=== PATIENT | male | born 1970 | race Caucasian/White ===

== ENCOUNTER 2018-02-15 21:23 | Emergency (ER) | payer SELFPAY ==
[~2018-02-15] VITALS: Ht 165.1 cm; Wt 62.7 kg
[2018-02-15 21:24] VITALS: BP 164/111
[2018-02-15] MEDS ORDERED: PROPARACAINE OPHTH 0.5%, 15ML ONE (21:32)
[2018-02-15] MEDS ORDERED: FLUORESCEIN OPHTHALMIC 1 MG STRIP ONE (21:32)
== END 2018-02-15 23:13 | disposition home or self-care (01) ==
LOC: ED 22:45
DX: T15.01XA Foreign body in cornea, right eye, initial encounter (principal); H16.041 Marginal corneal ulcer, right eye; F17.200 Nicotine dependence, unspecified, uncomplicated; X58.XXXA Exposure to other specified factors, initial encounter; Y93.89 Activity, other specified; Y92.89 Other specified places as the place of occurrence of the external cause; Y99.8 Other external cause status
CPT/HCPCS: 65222; 99284

== ENCOUNTER 2018-04-14 19:24 | Emergency (ER) | payer OTHER ==
[~2018-04-14] VITALS: Ht 165.1 cm; Wt 67.0 kg
[2018-04-14] MEDS ORDERED: SODIUM CHLORIDE FLUSH 10ML SYR IVF ONE (20:00)
[2018-04-14] MEDS ORDERED: ACETAMINOPHEN 500 MG TABLET PO ONE (20:00)
[2018-04-14] MEDS ORDERED: LIDOCAINE-MPF 1%, 5ML INFIL ONE (20:00)
[2018-04-14] MEDS ORDERED: SODIUM CHLORIDE 0.9% 1,000ML IVBOLUS ONE (20:00)
[2018-04-14] MEDS ORDERED: LIDOCAINE-MPF 2% ,5ML ONE (20:01)
[2018-04-14] MEDS ORDERED: ACETAMINOPHEN 500 MG TABLET ONE (20:10)
[2018-04-14 20:16] LABS: BASOPHILS # (AUTO) 0.03 x10^3/uL (0-0.1); BASOPHILS % (AUTO) 0 % (0-1); EOSINOPHILS # (AUTO) 0.16 x10^3/uL (0-0.4); EOSINOPHILS % (AUTO) 1 % (1-7); LYMPHOCYTES # (AUTO) 2.52 x10^3/uL (1-3.4); LYMPHOCYTES % (AUTO) 17 % (22-44); MD NO; MEAN CORPUSCULAR HEMOGLOBIN 28.9 pg (27.5-34.5); MEAN CORPUSCULAR HGB CONC 33.4 g/dL (33.2-36.2); MEAN CORPUSCULAR VOLUME 86.4 fL (81-97); MEAN PLATELET VOLUME 8.1 fL (7.4-10.4); MONOCYTES % (AUTO) 7 % (2-9); NEUTROPHILS # (AUTO) 11.16 x10^3/uL (1.8-6.8); NEUTROPHILS % (AUTO) 75 % (42-75); PLATELET COUNT 249 x10^3/uL (130-400); RED BLOOD COUNT 5.05 x10^6/uL (4.38-5.82); RED CELL DISTRIBUTION WIDTH 14.7 % (9.4-14.8)
[2018-04-14 20:23] LABS: ALBUMIN 3.3 g/dL (3.4-5.0); ANION GAP 6 mmol/L (5-15); CALCIUM 8.5 mg/dL (8.5-10.1); CHLORIDE 110 mmol/L (98-107); CREATININE 0.93 mg/dL (0.7-1.3)
[2018-04-14] MEDS ORDERED: DIPH,PERTUSS(ACELL),TET VAC/PF 0.5 ML IM-VACC ONE ×2 (20:30→21:12)
[2018-04-14] MEDS ORDERED: CEFAZOLIN PMX 1GM/50ML 50 ML ONE (21:31)
[2018-04-14 21:55] VITALS: BP 122/78
[2018-04-14] MEDS ORDERED: CEFAZOLIN PMX 1GM/50ML 50 ML IV ONE (22:00)
== END 2018-04-14 22:09 | disposition home or self-care (01) ==
LOC: ED 22:03
DX: T63.391A Toxic effect of venom of other spider, accidental (unintentional), initial encounter (principal); L03.113 Cellulitis of right upper limb; Y92.89 Other specified places as the place of occurrence of the external cause
CPT/HCPCS: 36415; 80048; 82040; 83605; 85025; 90471; 90715; 96365; 99284; J0690; J7030

== ENCOUNTER 2018-04-16 18:39 | Inpatient (IN) | payer OTHER ==
[~2018-04-16] VITALS: Ht 167.6 cm; Wt 59.4 kg
[2018-04-16] MEDS ORDERED: LIDOCAINE-MPF 2% ,5ML ONE (18:55)
[2018-04-16] MEDS ORDERED: LIDOCAINE-MPF 2% ,5ML SQ ONE (19:00)
[2018-04-16 19:20] LABS: ALBUMIN 3.3 g/dL (3.4-5.0); ANION GAP 7 mmol/L (5-15); CALCIUM 8.9 mg/dL (8.5-10.1); CHLORIDE 107 mmol/L (98-107); CREATININE 1.03 mg/dL (0.7-1.3)
[2018-04-16 19:21] LABS: BASOPHILS # (AUTO) 0.09 x10^3/uL (0-0.1); BASOPHILS % (AUTO) 1 % (0-1); EOSINOPHILS # (AUTO) 0.39 x10^3/uL (0-0.4); EOSINOPHILS % (AUTO) 4 % (1-7); LYMPHOCYTES # (AUTO) 1.56 x10^3/uL (1-3.4); LYMPHOCYTES % (AUTO) 14 % (22-44); MEAN CORPUSCULAR HEMOGLOBIN 29.8 pg (27.5-34.5); MEAN CORPUSCULAR HGB CONC 34.1 g/dL (33.2-36.2); MEAN CORPUSCULAR VOLUME 87.3 fL (81-97); MEAN PLATELET VOLUME 8.3 fL (7.4-10.4); MONOCYTES # (AUTO) 1.03 x10^3/uL (0.2-0.8); MONOCYTES % (AUTO) 9 % (2-9); NEUTROPHILS # (AUTO) 8.37 x10^3/uL (1.8-6.8); NEUTROPHILS % (AUTO) 73 % (42-75); PLATELET COUNT 236 x10^3/uL (130-400); RED BLOOD COUNT 5.36 x10^6/uL (4.38-5.82); RED CELL DISTRIBUTION WIDTH 15.3 % (9.4-14.8)
[2018-04-16 19:22] LABS: MD NO
[2018-04-16] MEDS ORDERED: SODIUM CHLORIDE 0.9% 1,000ML IVBOLUS ONE (19:30)
[2018-04-16] MEDS ORDERED: SODIUM CHLORIDE FLUSH 10ML SYR IVF ONE (19:30)
[2018-04-16] MEDS ORDERED: CLINDAMYCIN PMX 900MG/50ML 50 ML IV ONE (19:30)
[2018-04-16] MEDS ORDERED: CLINDAMYCIN PMX 900MG/50ML 50 ML ONE (19:38)
[2018-04-16 20:00] LABS: INTERNATIONAL NORMALIZED RATIO 0.96 (0.93-1.1)
[2018-04-16] MEDS ORDERED: LORazepam 2 MG/ML, 1ML IVPush ONE (20:00)
[2018-04-16] MEDS ORDERED: NICOTINE 21 MG/24 HR PATCH.TD24 TD ONE (21:00)
[2018-04-16] MEDS ORDERED: KETOROLAC 30 MG/1 ML IVPush ONE (21:00)
[2018-04-16] MEDS ORDERED: KETOROLAC 30 MG/1 ML ONE (21:12)
[2018-04-16] MEDS ORDERED: NICOTINE 21 MG/24 HR PATCH.TD24 ONE (21:12)
[2018-04-16] MEDS ORDERED: ACETAMINOPHEN 500 MG TABLET PO PRN (22:30)
[2018-04-16] MEDS ORDERED: ONDANSETRON 2MG/ML, 2ML IVPush PRN (22:30)
[2018-04-16] MEDS ORDERED: HYDROcodone/APAP 5/325 TABLET PO PRN (22:30)
[2018-04-16] MEDS: NICOTINE 14MG/24 HR PATCH.TD24 TD SCH (23:15)
[2018-04-16] MEDS: SODIUM CHLORIDE 0.9% 1,000 ML IV SCH (23:16)
[2018-04-16 23:17] VITALS: BP 145/92
[2018-04-17 00:51] VITALS: BP 152/88
[2018-04-17] MEDS: CLINDAMYCIN PMX 600MG/50ML 50 ML IV SCH ×4 (01:41→19:59)
[2018-04-17 05:11] LABS: BASOPHILS # (AUTO) 0.02 x10^3/uL (0-0.1); BASOPHILS % (AUTO) 0 % (0-1); EOSINOPHILS # (AUTO) 0.49 x10^3/uL (0-0.4); EOSINOPHILS % (AUTO) 5 % (1-7); LYMPHOCYTES # (AUTO) 1.88 x10^3/uL (1-3.4); LYMPHOCYTES % (AUTO) 20 % (22-44); MD NO; MEAN CORPUSCULAR HEMOGLOBIN 29.6 pg (27.5-34.5); MEAN CORPUSCULAR HGB CONC 33.5 g/dL (33.2-36.2); MEAN CORPUSCULAR VOLUME 88.3 fL (81-97); MEAN PLATELET VOLUME 8.4 fL (7.4-10.4); MONOCYTES # (AUTO) 1.17 x10^3/uL (0.2-0.8); MONOCYTES % (AUTO) 13 % (2-9); NEUTROPHILS # (AUTO) 5.64 x10^3/uL (1.8-6.8); NEUTROPHILS % (AUTO) 61 % (42-75); PLATELET COUNT 216 x10^3/uL (130-400); RED BLOOD COUNT 4.76 x10^6/uL (4.38-5.82); RED CELL DISTRIBUTION WIDTH 15.2 % (9.4-14.8)
[2018-04-17 06:43] VITALS: BP 142/87
[2018-04-17] MEDS ORDERED: LIDOCAINE 2%, 20ML INFIL ONE (07:30)
[2018-04-17] MEDS: MORPHINE SULFATE 4 MG/ML, 1ML IVPush PRN ×2 (07:59→15:45)
[2018-04-17] MEDS: SODIUM CHLORIDE 0.9% 1,000 ML IV SCH ×2 (10:07→18:26)
[2018-04-17 14:10] VITALS: BP 127/80
[2018-04-17 18:39] VITALS: BP 142/87
[2018-04-17] MEDS: HYDROcodone/APAP 5/325 TABLET PO PRN (19:59)
[2018-04-17] MEDS: NICOTINE 14MG/24 HR PATCH.TD24 TD SCH (22:51)
[2018-04-18 00:56] VITALS: BP 141/89
[2018-04-18] MEDS: CLINDAMYCIN PMX 600MG/50ML 50 ML IV SCH ×4 (01:42→22:29)
[2018-04-18] MEDS: SODIUM CHLORIDE 0.9% 1,000 ML IV SCH (04:23)
[2018-04-18] MEDS: HYDROcodone/APAP 5/325 TABLET PO PRN ×3 (04:23→18:39)
[2018-04-18 04:55] LABS: MEAN CORPUSCULAR HEMOGLOBIN 29.7 pg (27.5-34.5); MEAN CORPUSCULAR HGB CONC 33.4 g/dL (33.2-36.2); MEAN CORPUSCULAR VOLUME 88.7 fL (81-97); MEAN PLATELET VOLUME 8.1 fL (7.4-10.4); PLATELET COUNT 229 x10^3/uL (130-400); RED BLOOD COUNT 4.72 x10^6/uL (4.38-5.82); RED CELL DISTRIBUTION WIDTH 14.7 % (9.4-14.8)
[2018-04-18 04:59] LABS: ALBUMIN 2.6 g/dL (3.4-5.0); ANION GAP 5 mmol/L (5-15); CHLORIDE 112 mmol/L (98-107)
[2018-04-18 05:02] LABS: ALANINE AMINOTRANSFERASE 15 U/L (12-78); ALKALINE PHOSPHATASE 59 U/L (45-117); BILIRUBIN,TOTAL 0.1 mg/dL (0.2-1.0); CREATININE 0.75 mg/dL (0.7-1.3); TOTAL PROTEIN 5.9 g/dL (6.4-8.2)
[2018-04-18 05:59] LABS: BASOPHILS # (AUTO) 0.04 x10^3/uL (0-0.1); BASOPHILS % (AUTO) 1 % (0-1); EOSINOPHILS # (AUTO) 0.54 x10^3/uL (0-0.4); EOSINOPHILS % (AUTO) 9 % (1-7); LYMPHOCYTES # (AUTO) 2.06 x10^3/uL (1-3.4); LYMPHOCYTES % (AUTO) 33 % (22-44); MD SCAN; MONOCYTES % (AUTO) 13 % (2-9); NEUTROPHILS # (AUTO) 2.77 x10^3/uL (1.8-6.8); NEUTROPHILS % (AUTO) 45 % (42-75)
[2018-04-18 07:41] VITALS: BP 159/76
[2018-04-18] MEDS ORDERED: ENALAPRILAT 1.25 MG/ML, 2ML IV PRN ×2 (11:00)
[2018-04-18] MEDS: ENOXAPARIN 40 MG/0.4 ML SQ SCH (12:45)
[2018-04-18 14:41] VITALS: BP 129/82
[2018-04-18 19:01] VITALS: BP 130/80
[2018-04-18] MEDS ORDERED: SODIUM CHLORIDE 0.9% 1,000 ML IV SCH (22:26)
[2018-04-18] MEDS: NICOTINE 14MG/24 HR PATCH.TD24 TD SCH (22:30)
[2018-04-19 01:05] VITALS: BP 124/75
[2018-04-19] MEDS: CLINDAMYCIN PMX 600MG/50ML 50 ML IV SCH ×4 (04:46→23:15)
[2018-04-19] MEDS: HYDROcodone/APAP 5/325 TABLET PO PRN ×2 (04:46→21:08)
[2018-04-19 05:40] LABS: ALBUMIN 2.7 g/dL (3.4-5.0); ANION GAP 9 mmol/L (5-15); CALCIUM 7.9 mg/dL (8.5-10.1); CHLORIDE 109 mmol/L (98-107)
[2018-04-19 05:43] LABS: BASOPHILS # (AUTO) 0.06 x10^3/uL (0-0.1); BASOPHILS % (AUTO) 1 % (0-1); EOSINOPHILS # (AUTO) 0.38 x10^3/uL (0-0.4); EOSINOPHILS % (AUTO) 5 % (1-7); LYMPHOCYTES # (AUTO) 1.61 x10^3/uL (1-3.4); LYMPHOCYTES % (AUTO) 19 % (22-44); MD NO; MEAN CORPUSCULAR HEMOGLOBIN 29.2 pg (27.5-34.5); MEAN CORPUSCULAR HGB CONC 33.2 g/dL (33.2-36.2); MEAN CORPUSCULAR VOLUME 88.1 fL (81-97); MEAN PLATELET VOLUME 7.9 fL (7.4-10.4); MONOCYTES # (AUTO) 0.57 x10^3/uL (0.2-0.8); MONOCYTES % (AUTO) 7 % (2-9); NEUTROPHILS # (AUTO) 5.88 x10^3/uL (1.8-6.8); NEUTROPHILS % (AUTO) 69 % (42-75); PLATELET COUNT 251 x10^3/uL (130-400); RED CELL DISTRIBUTION WIDTH 14.6 % (9.4-14.8)
[2018-04-19 05:45] LABS: ALANINE AMINOTRANSFERASE 16 U/L (12-78); ALKALINE PHOSPHATASE 62 U/L (45-117); BILIRUBIN,TOTAL 0.3 mg/dL (0.2-1.0); TOTAL PROTEIN 6.2 g/dL (6.4-8.2)
[2018-04-19] MEDS ORDERED: MESALAMINE ENEMA 4 GM/60 ML ENEMA PR PRN (06:00)
[2018-04-19] MEDS ORDERED: BISACODYL 10 MG SUPP PR PRN (06:30)
[2018-04-19] MEDS ORDERED: MAGNESIUM CITRATE 300ML ORAL SOL PO PRN (06:30)
[2018-04-19] MEDS ORDERED: MAGNESIUM HYDROXIDE 8%, 30ML UDC PO PRN (06:30)
[2018-04-19 06:41] VITALS: BP 118/79
[2018-04-19] MEDS: ENOXAPARIN 40 MG/0.4 ML SQ SCH (10:30)
[2018-04-19] MEDS: MORPHINE SULFATE 4 MG/ML, 1ML IVPush PRN (11:15)
[2018-04-19 12:32] VITALS: BP 146/95
[2018-04-19 20:00] VITALS: BP 142/92
[2018-04-19] MEDS ORDERED: MESALAMINE ENEMA 4 GM/60 ML ENEMA PR SCH (21:00)
[2018-04-19] MEDS: NICOTINE 14MG/24 HR PATCH.TD24 TD SCH (23:15)
[2018-04-20 02:00] VITALS: BP 144/98
[2018-04-20] MEDS: CLINDAMYCIN PMX 600MG/50ML 50 ML IV SCH ×2 (04:56→10:50)
[2018-04-20 05:20] LABS: BASOPHILS # (AUTO) 0.04 x10^3/uL (0-0.1); BASOPHILS % (AUTO) 1 % (0-1); EOSINOPHILS % (AUTO) 7 % (1-7); LYMPHOCYTES # (AUTO) 2.08 x10^3/uL (1-3.4); LYMPHOCYTES % (AUTO) 36 % (22-44); MD NO; MEAN CORPUSCULAR HEMOGLOBIN 29.3 pg (27.5-34.5); MEAN CORPUSCULAR HGB CONC 33.4 g/dL (33.2-36.2); MEAN CORPUSCULAR VOLUME 87.8 fL (81-97); MEAN PLATELET VOLUME 7.6 fL (7.4-10.4); MONOCYTES # (AUTO) 0.59 x10^3/uL (0.2-0.8); MONOCYTES % (AUTO) 10 % (2-9); NEUTROPHILS # (AUTO) 2.61 x10^3/uL (1.8-6.8); NEUTROPHILS % (AUTO) 46 % (42-75); PLATELET COUNT 274 x10^3/uL (130-400); RED CELL DISTRIBUTION WIDTH 14.7 % (9.4-14.8)
[2018-04-20 05:35] LABS: ANION GAP 7 mmol/L (5-15); CALCIUM 8.2 mg/dL (8.5-10.1); CHLORIDE 109 mmol/L (98-107); CREATININE 0.76 mg/dL (0.7-1.3)
[2018-04-20 07:10] VITALS: BP 138/86
== END 2018-04-20 11:10 | disposition left against medical advice (07) | DRG 580 ==
LOC: ED 20:45 → EDIP 21:41 → 4WST 22:01
PROVIDERS: ADMIT Hospitalist; ATTEND Hospitalist
PROC: 0J9J0ZZ Drainage of Right Hand Subcutaneous Tissue and Fascia, Open Approach (ICD-10-PCS; principal; 2018-04-17)
DX: L02.511 Cutaneous abscess of right hand (principal); E44.1 Mild protein-calorie malnutrition; M79.5 Residual foreign body in soft tissue; L03.011 Cellulitis of right finger; S60.462A Insect bite (nonvenomous) of right middle finger, initial encounter; I10 Essential (primary) hypertension; R00.0 Tachycardia, unspecified; F17.210 Nicotine dependence, cigarettes, uncomplicated; Z53.21 Procedure and treatment not carried out due to patient leaving prior to being seen by health care provider; W57.XXXA Bitten or stung by nonvenomous insect and other nonvenomous arthropods, initial encounter; Z68.21 Body mass index [BMI] 21.0-21.9, adult; Y93.89 Activity, other specified; Y92.89 Other specified places as the place of occurrence of the external cause; Y99.8 Other external cause status
CPT/HCPCS: 26010; 36415; 80048; 80053; 82040; 83605; 84145; 85025; 85610; 85730; 87040; 87070; 87077; 87186; 87205; 96361; 96374; 99285; J1650; J1885; J3490; J7030